=== PATIENT | male | born 1970 | race Caucasian/White ===

== ENCOUNTER 2022-01-09 08:02 | Day surgery (SDC) | payer OTHER ==
[2022-01-09] VITALS (127 sets, daily range): BP systolic 109–149; BP diastolic 62–109
[2022-01-09 08:33] LABS: HEMATOCRIT 49.7 % (39.0-50.0); HEMOGLOBIN 16.9 g/dl (14.0-18.0); IMMATURE GRANULOCYTES 0.2 % (0.0-5.0); MEAN CELL VOLUME 101.2 fL CALC (80.0-100.0); MEAN CORPUSCULAR HGB 34.4 pG CALC (26.0-32.0); NEUT# 7.1 thou/uL (1.82-7.42); RED BLOOD COUNT 4.91 mill/uL (4.70-6.10); RED CELL DISTRI WIDTH 13.2 % (11.5-15.5)
[2022-01-09 08:46] LABS: ALBUMIN 4.6 g/dL (3.2-5.0); ALKALINE PHOSPHATASE 54 u/l (38-126); ANION GAP 11 (6-22 (CALC)); BILIRUBIN, TOTAL 1.1 mg/dL (0.0-1.4); BUN 16 mg/dL (9-20); BUN/CREATININE RATIO 18 (12-20 (CALC)); CARBON DIOXIDE 26 mmol/l (22-30); CHLORIDE 104 mmol/l (95-108); CREATININE 0.9 mg/dL (0.7-1.3); GFR > 60 ML/MIN (>=60 (CALC)); GFR FOR AFR.AMER. > 60 ML/MIN (>=60 (CALC)); POTASSIUM 4.1 mmol/l (3.5-5.1); SGOT/AST 22 u/l (17-59); SODIUM 137 mmol/l (137-146); TOTAL PROTEIN 7.1 g/dL (6.3-8.2)
[2022-01-10 03:52] VITALS: BP 128/76
[2022-01-10 05:18] LABS: HEMATOCRIT 49.7 % (39.0-50.0); HEMOGLOBIN 17.1 g/dl (14.0-18.0); IMMATURE GRANULOCYTES 0.2 % (0.0-5.0); MEAN CELL VOLUME 99.2 fL CALC (80.0-100.0); MEAN CORPUSCULAR HGB 34.1 pG CALC (26.0-32.0); MEAN CORPUSCULAR HGB CONC 34.4 g/dL CAL (32.0-36.0); NEUT# 12.3 thou/uL (1.82-7.42); RED BLOOD COUNT 5.01 mill/uL (4.70-6.10)
[2022-01-10 05:38] LABS: ALKALINE PHOSPHATASE 48 u/l (38-126); BILIRUBIN, TOTAL 0.9 mg/dL (0.0-1.4); BUN 14 mg/dL (9-20); BUN/CREATININE RATIO 16 (12-20 (CALC)); CHLORIDE 109 mmol/l (95-108); CREATININE 0.9 mg/dL (0.7-1.3); GFR > 60 ML/MIN (>=60 (CALC)); GFR FOR AFR.AMER. > 60 ML/MIN (>=60 (CALC)); MAGNESIUM 2.4 mg/dL (1.6-2.3); POTASSIUM 4.4 mmol/l (3.5-5.1); SGOT/AST 22 u/l (17-59); SODIUM 137 mmol/l (137-146); TOTAL PROTEIN 6.5 g/dL (6.3-8.2)
[2022-01-10 05:39] LABS: ANION GAP 12 (6-22 (CALC)); CARBON DIOXIDE 20 mmol/l (22-30)
[2022-01-10 08:14] VITALS: BP 110/65
== END 2022-01-10 17:00 | disposition home or self-care (01) | DRG 897 ==
LOC: ANR 08:02 → MS2 08:03 → ANR 10:34
PROVIDERS: ATTEND Anesthesiology
DX: F11.20 Opioid dependence, uncomplicated (principal)
CPT/HCPCS: J2060; J2354

== ENCOUNTER 2023-10-27 03:56 | Day surgery (SDC) | payer OTHER ==
[2023-10-27] VITALS (228 sets, daily range): BP systolic 94–148; BP diastolic 54–103
[~2023-10-27] VITALS: Ht 177.8 cm; Wt 91.0 kg
[2023-10-27] MEDS ORDERED: SCOPOLAMINE 1.5 MG DIS TD PRN (07:30)
[2023-10-27] MEDS ORDERED: LACTATED RINGER'S 1,000 ML IV PRN ×3 (07:30→19:00)
[2023-10-27] MEDS ORDERED: ALBUTEROL SULFATE 2.5 MG VIAL IN PRN (07:30)
[2023-10-27] MEDS ORDERED: PANTOPRAZOLE SODIUM Sesquihydr 40 MG/TAB PO PRN (07:30)
[2023-10-27] MEDS ORDERED: cloNIDine HCL 0.1 MG/TAB PO PRN (07:30)
[2023-10-27] MEDS ORDERED: CYANOCOBALAMIN 500 MCG/TAB ( B12) PO PRN (07:30)
[2023-10-27] MEDS ORDERED: FAMOTIDINE 20 MG/TAB PO PRN (07:30)
[2023-10-27] MEDS ORDERED: diazePAM 5 MG/TAB PO PRN ×2 (07:30→08:30)
[2023-10-27] MEDS ORDERED: ASCORBIC ACID 4,000 MG in SODIUM CHLORIDE 0.9% 1,000 ML IV SCH (08:00)
[2023-10-27 09:15] LABS: ALKALINE PHOSPHATASE 45 u/l (38-126); BILIRUBIN, TOTAL 0.6 mg/dL (0.2-1.3); BUN 15 mg/dL (9-20); BUN/CREATININE RATIO 17 (12-20 (CALC)); CHLORIDE 102 mmol/l (95-108); CREATININE 0.9 mg/dL (0.7-1.3); GFR FOR AFR.AMER. > 60 ML/MIN (>=60 (CALC)); GFR OTHER RACES > 60 ML/MIN (>=60 (CALC)); POTASSIUM 4.9 mmol/l (3.5-5.1); SGOT/AST 33 u/l (17-59); SODIUM 138 mmol/l (137-146); TOTAL PROTEIN 7.5 g/dL (6.3-8.2)
[2023-10-27 09:17] LABS: ALBUMIN 4.9 g/dL (3.2-5.0); ANION GAP 11 (6-22 (CALC)); CARBON DIOXIDE 30 mmol/l (22-30)
[2023-10-27] MEDS ORDERED: ROCURONIUM BROMIDE 10 MG/ML 5ML VIAL IV PRN (09:40)
[2023-10-27] MEDS ORDERED: PROPOFOL 10 MG/ML 100ML VIAL IV PRN (09:40)
[2023-10-27] MEDS ORDERED: NALTREXONE HCL 50 MG/TAB VT PRN (09:40)
[2023-10-27] MEDS ORDERED: DEXAMETHASONE SOD. PHOSPHATE 10 MG/ML VIAL IV PRN (09:40)
[2023-10-27] MEDS ORDERED: LIDOCAINE HCL 1% (10MG/ML) 100 MG/10 ML MDV VT PRN ×2 (09:40)
[2023-10-27] MEDS ORDERED: DiphenhydrAMINE HCL 50 MG/ML SDV IV PRN (09:40)
[2023-10-27] MEDS ORDERED: STERILE WATER FOR IRRIGATION 1,000 ML BTL IR PRN (09:40)
[2023-10-27] MEDS ORDERED: OCTREOTIDE ACETATE 100 MCG/VIAL SDV SC PRN (09:40)
[2023-10-27] MEDS ORDERED: MAGNESIUM SULFATE HEPTAHYDRATE 100 ML IV PRN (09:40)
[2023-10-27] MEDS ORDERED: cloNIDine HCL 0.1 MG/TAB VT PRN (09:40)
[2023-10-27] MEDS ORDERED: LIDOCAINE HCL 1% (10MG/ML) 100 MG/10 ML MDV IV PRN (09:40)
[2023-10-27] MEDS ORDERED: ONDANSETRON HCl 4 MG/2 ML SDV IV PRN ×3 (09:40→19:00)
[2023-10-27] MEDS ORDERED: MIDAZOLAM HCL 2 MG/2 ML VIAL IV PRN (09:40)
[2023-10-27] MEDS ORDERED: cloNIDine HYDROCHLORIDE 100 MCG/ML 10 ML INJ IV PRN (09:40)
[2023-10-27] MEDS ORDERED: diazePAM 5 MG/TAB VT PRN (09:40)
[2023-10-27] MEDS ORDERED: THIAMINE HCL 100 MG/ML 2ML VIAL IV PRN (09:40)
[2023-10-27] MEDS ORDERED: SUCCINYLCHOLINE CHLORIDE 20 MG/ML 10ML VIAL IV PRN (09:40)
[2023-10-27] MEDS ORDERED: PROPOFOL 100 ML IV PRN (09:40)
[2023-10-27] MEDS ORDERED: ACETAMINOPHEN 500 MG TAB PO SCH (09:45)
[2023-10-27 10:06] LABS: BASO% 0.7 % (0-3); EOS% 4.9 % (0-8); HEMATOCRIT 53.2 % (39.0-50.0); HEMOGLOBIN 17.5 g/dl (14.0-18.0); IMMATURE GRANULOCYTES 0.2 % (0.0-5.0); LYMPH% 17.4 % (15-41); MEAN CELL VOLUME 100.9 fL CALC (80.0-100.0); MEAN CORPUSCULAR HGB 33.2 pG CALC (26.0-32.0); MEAN CORPUSCULAR HGB CONC 32.9 g/dL CAL (32.0-36.0); MONO% 6.7 % (2-13); NEUT# 9.24 thou/uL (1.82-7.42); NEUT% 70.1 % (42-76); RED BLOOD COUNT 5.27 mill/uL (4.70-6.10); RED CELL DISTRI WIDTH 13.6 % (11.5-15.5)
[2023-10-27] MEDS ORDERED: NALTREXONE50 MG PO (14:08)
[2023-10-27] MEDS ORDERED: KLONOPIN2 MG PO (14:08)
[2023-10-27] MEDS ORDERED: CLONIDINE0.1 MG PO (14:09)
[2023-10-27] MEDS ORDERED: PATIENT' OWN MED CONTROLLED 1 EA DOSE IV PRN (16:30)
[2023-10-27] MEDS ORDERED: diazePAM 10 MG/2 ML VIAL IV PRN (16:30)
[2023-10-27] MEDS ORDERED: DEXAMETHASONE SODIUM PHOSPHATE PF 10 MG/ML SDV IV PRN (19:00)
[2023-10-27] MEDS ORDERED: HALOPERIDOL LACTATE 5 MG/ML SDV IV PRN (19:00)
[2023-10-27] MEDS ORDERED: KETOROLAC TROMETHAMINE 30 MG/ML SDV IV PRN (19:00)
[2023-10-27] MEDS ORDERED: PROMETHAZINE HCL 25 MG in SODIUM CHLORIDE 0.9% 50 ML IV PRN (19:00)
[2023-10-27] MEDS ORDERED: PROMETHAZINE HCL 12.5 MG in SODIUM CHLORIDE 0.9% 50 ML IV PRN (19:00)
[2023-10-27] MEDS ORDERED: ACETAMINOPHEN 500 MG TAB PO PRN (19:00)
[2023-10-27] MEDS ORDERED: ACETAMINOPHEN 1,000 MG/100 ML VIAL IV PRN (19:00)
[2023-10-27] MEDS ORDERED: diazePAM 10 MG/2 ML VIAL IV SCH (22:25)
[2023-10-27] MEDS ORDERED: LIDOCAINE 4 % PATCH TD PRN (22:25)
[2023-10-27] MEDS ORDERED: clonazePAM 1 MG/TAB PO SCH (23:00)
[2023-10-27] MEDS ORDERED: cloNIDine HCL 0.1 MG/TAB PO SCH (23:00)
[2023-10-28] MEDS ORDERED: ALUM & MAG HYDROX-SIMETHICONE 30 ML PO PRN (02:05)
[2023-10-28 03:59] VITALS: BP 124/68
[2023-10-28] MEDS ORDERED: cloNIDine HCL 0.1 MG/TAB PO PRN (04:00)
[2023-10-28] MEDS ORDERED: clonazePAM 1 MG/TAB PO PRN ×2 (04:00→08:00)
[2023-10-28 06:34] LABS: BASO% 0.2 % (0-3); HEMOGLOBIN 16.3 g/dl (14.0-18.0); IMMATURE GRANULOCYTES 0.4 % (0.0-5.0); LYMPH% 7.5 % (15-41); MEAN CELL VOLUME 96.8 fL CALC (80.0-100.0); MEAN CORPUSCULAR HGB 34.2 pG CALC (26.0-32.0); MEAN CORPUSCULAR HGB CONC 35.4 g/dL CAL (32.0-36.0); MONO% 6.6 % (2-13); NEUT# 16.73 thou/uL (1.82-7.42); NEUT% 85.3 % (42-76); RED BLOOD COUNT 4.76 mill/uL (4.70-6.10); RED CELL DISTRI WIDTH 13.1 % (11.5-15.5)
[2023-10-28 06:37] LABS: HEMATOCRIT 46.1 % (39.0-50.0)
[2023-10-28 06:50] LABS: ALKALINE PHOSPHATASE 48 u/l (38-126); BUN 16 mg/dL (9-20); BUN/CREATININE RATIO 15 (12-20 (CALC)); CHLORIDE 107 mmol/l (95-108); CREATININE 1.1 mg/dL (0.7-1.3); GFR FOR AFR.AMER. > 60 ML/MIN (>=60 (CALC)); GFR OTHER RACES > 60 ML/MIN (>=60 (CALC)); MAGNESIUM 2.3 mg/dL (1.6-2.3); POTASSIUM 4.3 mmol/l (3.5-5.1); SGOT/AST 31 u/l (17-59); SODIUM 136 mmol/l (137-146); TOTAL PROTEIN 6.2 g/dL (6.3-8.2)
[2023-10-28 07:00] LABS: ANION GAP 11 (6-22 (CALC)); BILIRUBIN, TOTAL 1.2 mg/dL (0.2-1.3); CARBON DIOXIDE 22 mmol/l (22-30)
[2023-10-28] MEDS ORDERED: ACETAMINOPHEN 325 MG/TAB PO SCH (08:00)
[2023-10-28] MEDS ORDERED: PANTOPRAZOLE SODIUM Sesquihydr 40 MG/TAB PO SCH (08:00)
[2023-10-28] MEDS ORDERED: NALTREXONE HCL 50 MG/TAB PO SCH ×2 (08:00→13:00)
[2023-10-28] MEDS ORDERED: cloNIDine HCL 0.1 MG/TAB PO SCH (08:00)
[2023-10-28] MEDS ORDERED: ACETAMINOPHEN 500 MG TAB PO PRN (09:00)
[2023-10-28] MEDS ORDERED: MAGNESIUM OXIDE 400 MG/TAB PO PRN (09:00)
[2023-10-28] MEDS ORDERED: Cholecalciferol 2,000 UNIT/TAB PO PRN (09:00)
[2023-10-28 11:30] VITALS: BP 111/60
[2023-10-28] MEDS ORDERED: PATIENT' OWN MED CONTROLLED 1 EA DOSE IV SCH (11:30)
[2023-10-28] MEDS ORDERED: LACTATED RINGER'S 1,000 ML IV SCH (12:30)
== END 2023-10-28 16:59 | disposition home or self-care (01) | DRG 897 ==
LOC: ANR 03:56 → MS2 03:56 → ANR 08:00
PROVIDERS: ATTEND Anesthesiology
DX: F11.20 Opioid dependence, uncomplicated (principal)
CPT/HCPCS: J0131; J2354; J3475

== ENCOUNTER 2023-10-29 19:09 | Observation (INO) | payer OTHER ==
[~2023-10-29 19:09] MED LIST: CLONIDINE0.1 MG PO; KLONOPIN2 MG PO; NALTREXONE50 MG PO
[2023-10-29 19:37] VITALS: BP 138/79
[2023-10-29 19:45] LABS: BASO% 0.1 % (0-3); EOS% 0.1 % (0-8); HEMATOCRIT 50.1 % (39.0-50.0); HEMOGLOBIN 17.4 g/dl (14.0-18.0); IMMATURE GRANULOCYTES 0.2 % (0.0-5.0); LYMPH% 13.1 % (15-41); MEAN CELL VOLUME 96.7 fL CALC (80.0-100.0); MEAN CORPUSCULAR HGB 33.6 pG CALC (26.0-32.0); MEAN CORPUSCULAR HGB CONC 34.7 g/dL CAL (32.0-36.0); MONO% 9.5 % (2-13); NEUT# 15.08 thou/uL (1.82-7.42); RED BLOOD COUNT 5.18 mill/uL (4.70-6.10); RED CELL DISTRI WIDTH 13.2 % (11.5-15.5)
[2023-10-29 19:59] LABS: ALBUMIN 4.2 g/dL (3.2-5.0); ALKALINE PHOSPHATASE 42 u/l (38-126); ANION GAP 11 (6-22 (CALC)); BUN 12 mg/dL (9-20); BUN/CREATININE RATIO 15 (12-20 (CALC)); CARBON DIOXIDE 24 mmol/l (22-30); CHLORIDE 110 mmol/l (95-108); CREATININE 0.8 mg/dL (0.7-1.3); GFR FOR AFR.AMER. > 60 ML/MIN (>=60 (CALC)); GFR OTHER RACES > 60 ML/MIN (>=60 (CALC)); MAGNESIUM 2.2 mg/dL (1.6-2.3); POTASSIUM 3.6 mmol/l (3.5-5.1); SGOT/AST 29 u/l (17-59); SODIUM 142 mmol/l (137-146); TOTAL PROTEIN 6.7 g/dL (6.3-8.2)
[2023-10-29 20:01] LABS: BILIRUBIN, TOTAL 0.7 mg/dL (0.2-1.3)
[2023-10-29] MEDS ORDERED: POTASSIUM CHLORIDE 20 MEQ/TAB PO SCH (22:00)
[2023-10-29] MEDS ORDERED: ONDANSETRON HCl 4 MG/2 ML SDV IV PRN (22:15)
[2023-10-29] MEDS ORDERED: LACTATED RINGER'S 1,000 ML IV ONE (22:20)
[2023-10-29] MEDS ORDERED: BISMUTH SUBSALICYLATE 262 MG CHW PO SCH (22:30)
[2023-10-29] MEDS ORDERED: LACTATED RINGER'S 1,000 ML IV PRN (23:30)
[2023-10-30 04:45] VITALS: BP 132/74
[2023-10-30] MEDS ORDERED: ALUM & MAG HYDROX-SIMETHICONE 30 ML PO SCH (05:00)
[2023-10-30] MEDS ORDERED: Pantoprazole Sodium 40 MG VIAL (Protonix) IV SCH (05:00)
[2023-10-30] MEDS ORDERED: NALTREXONE HCL 50 MG/TAB PO SCH (08:00)
[2023-10-30 08:12] LABS: BASO% 0.3 % (0-3); EOS% 0.1 % (0-8); HEMATOCRIT 45.4 % (39.0-50.0); HEMOGLOBIN 15.9 g/dl (14.0-18.0); IMMATURE GRANULOCYTES 0.1 % (0.0-5.0); LYMPH% 17.8 % (15-41); MEAN CELL VOLUME 96.4 fL CALC (80.0-100.0); MEAN CORPUSCULAR HGB 33.8 pG CALC (26.0-32.0); NEUT# 11.19 thou/uL (1.82-7.42); NEUT% 72.7 % (42-76); RED BLOOD COUNT 4.71 mill/uL (4.70-6.10); RED CELL DISTRI WIDTH 12.9 % (11.5-15.5)
[2023-10-30 08:28] LABS: ALBUMIN 3.7 g/dL (3.2-5.0); ALKALINE PHOSPHATASE 43 u/l (38-126); ANION GAP 9 (6-22 (CALC)); BILIRUBIN, TOTAL 0.9 mg/dL (0.2-1.3); BUN 9 mg/dL (9-20); BUN/CREATININE RATIO 11 (12-20 (CALC)); CARBON DIOXIDE 23 mmol/l (22-30); CHLORIDE 112 mmol/l (95-108); CREATININE 0.9 mg/dL (0.7-1.3); GFR FOR AFR.AMER. > 60 ML/MIN (>=60 (CALC)); GFR OTHER RACES > 60 ML/MIN (>=60 (CALC)); POTASSIUM 3.5 mmol/l (3.5-5.1); SGOT/AST 20 u/l (17-59); SODIUM 141 mmol/l (137-146); TOTAL PROTEIN 5.9 g/dL (6.3-8.2)
[2023-10-30] MEDS ORDERED: KETOROLAC TROMETHAMINE 15 MG/ML SDV IV PRN (10:35)
[2023-10-30] MEDS ORDERED: ACETAMINOPHEN 325 MG/TAB PO PRN (10:35)
[2023-10-30] MEDS ORDERED: POTASSIUM CHLORIDE 20 MEQ/TAB PO SCH ×2 (11:00→13:00)
[2023-10-30] MEDS ORDERED: LACTATED RINGER'S 1,000 ML IV SCH (11:00)
[2023-10-30] MEDS ORDERED: PANTOPRAZOLE SODIUM Sesquihydr 40 MG/TAB PO SCH (11:00)
[2023-10-30 19:39] VITALS: BP 140/76
[2023-10-31 04:51] VITALS: BP 134/79
[2023-10-31 07:37] VITALS: BP 143/81
[2023-10-31 08:18] VITALS: BP 143/81
[2023-10-31] MEDS ORDERED: cloNIDine HCL 0.1 MG/TAB PO SCH (08:30)
[2023-10-31] MEDS ORDERED: NALTREXONE HCL 50 MG/TAB PO SCH (08:30)
[2023-10-31 08:49] VITALS: BP 143/81
== END 2023-10-31 18:15 | disposition home or self-care (01) | DRG 641 ==
LOC: MS2 19:09
PROVIDERS: ADMIT Anesthesiology; ATTEND Anesthesiology
DX: E86.0 Dehydration (principal); F11.20 Opioid dependence, uncomplicated; R19.7 Diarrhea, unspecified; R10.9 Unspecified abdominal pain; K21.9 Gastro-esophageal reflux disease without esophagitis; Z72.0 Tobacco use
CPT/HCPCS: S0164